=== PATIENT | female | born 1980 | race Two or more races ===

== ENCOUNTER 2023-11-11 09:36 | Outpatient (AMB) | payer OTHER, SELFPAY ==
--- NOTE | 2023-11-11 09:43 | MHC.OFFVIS ---
Intake Vital Signs 11/11/23 09:44 Height 5 ft 2 in Weight 212 lb 4 oz BMI 38.8 BP 150/98 H Blood Pressure Location Rt brachial Position Sitting Pulse 82 Pulse Source Pulse Oximeter Pulse Oximetry (%) 97 Oxygen Delivery Method Room Air Intake Visit Reasons: Hypertension Agronomy Technician Required: No Accompanied by: Self / Same As Patient Allergies latex Allergy (Verified 11/11/23 09:48) Unknown lisinopril Allergy (Verified 11/11/23 09:48) Unknown shrimp Allergy (Verified 11/11/23 09:48) Unknown HPI HPI Comments History of Present Illness Details I had the privilege of seeing Sid in follow-up of her hypertension. She has gained some weight and her blood pressure control has been sub optimal. She has some symptoms suggestive of obstructive sleep apnea. She has been having edema. She claims to be compliant with the losartan and nifedipine. She denies chest pain, shortness of breath, paroxysmal nocturnal dyspnea, orthopnea, urinary symptoms, visual disturbances, headache. She denies using excess nonsteroidal anti-inflammatories. She is not compliant with low-sodium diet. [facility] Medical History (Updated 11/11/23 @ 10:16 by Kenny Moore MD) Hypertension Surgical History (Updated 11/11/23 @ 09:49 by Meghan Smiley MA) History of carpal tunnel release History of wisdom tooth extraction H/O section History of appendectomy History of cholecystectomy Family History (Updated 11/11/23 @ 09:50 by Meghan Smiley MA) Mother Kidney disease Hypertension Brother Hypertension Social History (Updated 11/11/23 @ 09:49 by Meghan Smiley MA) Alcohol intake: never Patient Tobacco Use Status: Never used Tobacco Physical Exam Vital Signs: Last Vital Signs Pulse 82 11/11/23 09:44 BP 150/98 H 11/11/23 09:44 Pulse Ox 97 11/11/23 09:44 Oxygen Delivery Method Room Air 11/11/23 09:44 BMI result Body Mass Index 38.8 Const General: comfortable and no acute distress Orientation/consciousness: patient oriented x3 HEENT Head: Yes normocephalic Mouth: Normal oral and palatal mucosa present Eyes EOM: EOMs intact bilaterally Neck Neck: Yes supple Resp Auscultation: clear to auscultation bilaterally Cardio Jugular venous distension: no JVD Rate: regular rate Heart sounds: Murmur heart sound present GI Palpation (GI): Soft to palpation Auscultation: normal bowel sounds General: Yes no CVA tenderness Back/Spine/Pelvis Back: no CVA tenderness Skin General skin exam: no rashes or lesions noted Neuro General: patient oriented x3 and moves all extremities Extrem General: Yes edema Assessment & Plan Assessment & Plan (1) Hypertension: Code(s): I10 - Essential (primary) hypertension Qualifiers: Hypertension type: primary hypertension Qualified Code(s): I10 - Essential (primary) hypertension Plan She has had proteinuria in the past. She has not had any quantification of urine protein recently. Her blood pressure control remains suboptimal. She has edema. She is on losartan 100 mg and nifedipine 90 mg daily. I started her on chlorthalidone 25 mg daily. All side effects have been explained. She needs a sleep study. She needs to lose weight and keep up with a low-sodium diet. She is going to follow-up with me with repeat lab work for continued care. All questions answered . Follow-up given Medications: New chlorthalidone 25 mg PO DAILY 30 days 30 tabs 3RF Coding Level of Care Code Est Pt Level 4 (09984) Diagnoses Primary hypertension I10 Hypertension type: primary hypertension
[2023-11-11 09:44] VITALS: BP 150/98; PULSE 82; O2SAT 97; BMI 38.8
== END 2023-11-11 10:24 | disposition home or self-care (01) ==
PROVIDERS: PCP Internal Medicine; Visit Provider Internal Medicine Nephrology
DX: I10 Essential (primary) hypertension (principal)
CPT/HCPCS: 99214

== ENCOUNTER → 2023-11-11 09:36 | Outpatient (BNVA) | payer OTHER, SELFPAY | PROVIDERS: PCP Internal Medicine; Visit Provider Internal Medicine Nephrology ==

== ENCOUNTER 2024-12-26 10:33 | Outpatient (AMB) | payer BC, SELFPAY ==
--- NOTE | 2024-12-26 10:50 | HO.NEPHOV_ITS ---
Vital Signs 12/26/24 10:55 Weight 206 lb 4 oz BP 140/80 H Blood Pressure Location Lt brachial Position Sitting Pulse 81 Pulse Source Pulse Oximeter Pulse Oximetry (%) 98 Intake Visit Reasons: follow up Operations Supervisor Required: No Accompanied by: Self / Same As Patient Allergies latex Allergy (Verified 12/26/24 10:54) Unknown lisinopril Allergy (Verified 12/26/24 10:54) Unknown shrimp Allergy (Verified 12/26/24 10:54) Unknown HPI Comments Details: I had the privilege of seeing Sid in follow-up of her hypertension. She has gained some weight and her blood pressure control has been labile. She has some symptoms suggestive of obstructive sleep apnea. She has been having edema. She claims to be compliant with the losartan and nifedipine. She took Chlorthalidone for a brief period of time. She denies chest pain, shortness of breath, paroxysmal nocturnal dyspnea, orthopnea, urinary symptoms, visual disturbances, headache. She denies using excess nonsteroidal anti- inflammatories. She is not compliant with low-sodium diet. [facility] Medical History (Updated 11/11/23 @ 10:16 by Kenny Moore MD) Hypertension Surgical History History of carpal tunnel release History of wisdom tooth extraction H/O section History of appendectomy History of cholecystectomy Family History Mother Kidney disease Hypertension Brother Hypertension Social History Alcohol intake: never Patient Tobacco Use Status: Never used Tobacco Review of Systems Const All systems reviewed & are unremarkable except as noted in HPI and below Physical Exam Vital Signs: Last Vital Signs Pulse 81 12/26/24 10:55 BP 140/80 H 12/26/24 10:55 Pulse Ox 98 12/26/24 10:55 Const General: comfortable and no acute distress Orientation/consciousness: patient oriented x3 HEENT Head: Yes normocephalic Mouth: Normal oral and palatal mucosa present Eyes EOM: EOMs intact bilaterally Neck Neck: Yes supple Resp Auscultation: clear to auscultation bilaterally Cardio Jugular venous distension: no JVD Rate: regular rate GI Palpation (GI): Soft to palpation Auscultation: normal bowel sounds Skin General skin exam: no rashes or lesions noted Neuro General: patient oriented x3 and moves all extremities Extrem General: Yes no pedal edema Results Reviewed Nephrology Results: No Data to Display Assessment & Plan Assessment & Plan (1) Hypertension: Code(s): I10 - Essential (primary) hypertension Category: Medical Qualifiers: Hypertension type: primary hypertension Qualified Code(s): I10 - Essential (primary) hypertension Plan She has had proteinuria in the past. She has not had any quantification of urine protein recently. Her blood pressure control remains labile. She forgets to take maedications at times. She has no edema. She is on losartan 100 mg and nifedipine 90 mg daily. She likely will need a sleep study. She needs to lose weight and keep up with a low-sodium diet. She is going to follow-up with me with repeat lab work for continued care. All questions answered . Follow-up tomas delaney Orders: Orders Creatinine Today I10 - Essential (primary) hypertension Blood Urea Nitrogen Today I10 - Essential (primary) hypertension Electrolytes Today I10 - Essential (primary) hypertension Protein Creatinine Ratio, Ur Today I10 - Essential (primary) hypertension Coding Level of Care Code Est Pt Level 4 (67085) Diagnoses Primary hypertension I10 Hypertension type: primary hypertension
[2024-12-26 10:55] VITALS: BP 140/80; PULSE 81; O2SAT 98
--- OUTSIDE RECORDS SUMMARY | 2024-12-26 12:38 | XMS_ITS | Clinical Summary ---
Author Organization [facility] Address [address] [place] [address] Phone Care Team Providers Care Manager Mechanical Name Role Phone Physician, No Pcp Primary Care Provider Unavaila ble Allergies Active Allergy Reactions Criticality Noted Date Comments Lisinopril Cough 10/19/2024 Medications albuterol HFA (PROAIR HFA ; PROVENTIL HFA ; VENTOLIN HFA) 90 mcg/actuation inhaler Inhale 2 puffs by mouth every 4 (four) hours if needed for wheezing. 1 each 10/19/2024 Active Encounters Date Type Department Care Team Description 10/19/2024 9:20 AM EST - 10/19/2024 10:48 AM EST Emergency [facility] Emergency [address] [place] [address] Arthur Min, Acute cough (Primary Dx); Acute bronchitis, unspecified organism Discharge Disposition: Home or Self Care from Last 3 Months Surgical History Surgery Date Site/Laterality Comments APPENDECTOMY PROCEDURE: AR APPENDECTOMY Social History Tobacco Use Types Packs/Day Years Used Date Smoking Tobacco: Never Smokeless Tobacco: Never Alcohol Use Standard Drinks/Week Comments No 0 (1 standard drink = 0.6 oz pur e alcohol) Comments Unknown Sex and Gender Information Value Date Recorded Sex Assigned at Not on file Legal Sex Female 3:32 PM EST Gender Identity Not on file Sexual Orientation Not on file Obstetrics History Last Filed Vital Signs Vital Sign Reading Time Taken Comments Blood Pressure 136/75 10/19/2024 10:24 AM EST Pulse 73 10/19/2024 10:24 AM EST Temperature 36.5 ??C (97.7 ??F) 10/19/2024 8:00 AM ES T Respiratory Rate 18 10/19/2024 8:00 AM EST Oxygen Saturation 100% 10/19/2024 10:24 AM EST Inhaled Oxygen Concentration - - Weight 97.5 kg (215 lb) 10/19/2024 8:00 AM EST Height 157.5 cm (5' 2 ) 10/19/2024 8:00 AM EST Body Mass Index 39.32 10/19/2024 8:00 AM EST Plan of Treatment Health Maintenance Due Date Last Done Comments Breast Cancer Screening 1978 Hepatitis B Vaccines (1 of 3 - 19+ 3-dose series) 1997 Pneumococcal Vaccine: Pediatrics (0 to 5 Years) and At-Risk Patients (6 to 64 Years) (1 of 2 - PCV) 1997 Cervical Cancer Screening: Pap Smear 1999 Cholesterol Screening (Lipid Panel) 09/16/2022 Colorectal Cancer Screening: Colonoscopy 09/16/2022 Depression Screening 09/16/2022 HIV Screening 09/16/2022 Hepatitis C Screening 09/16/2022 Social Influencers of Health Screening 09/16/2022 COVID-19 Vaccine ( season) 2024 06/10/2022, 10/07/2021, 04/10/2021, Additional history exists Influenza Vaccine (#1) 2024 , 07/30/2022, 09/25/2020, Additional history exists Hypertension/CHF/CAD Annual BMP Blood Test 10/19/2024 DTaP,Tdap,and Td Vaccines (3 - Td or Tdap) 12/18/2031 12/17/2021, 05/30/2010 HIB Vaccines Aged Out No longer eligi ble based on patient's age to complete this topic HPV Vaccines Aged Out No longer eligi ble based on patient's age to complete this topic Hepatitis A Vaccines Aged Out No long er eligible based on patient's age to complete this topic IPV Vaccines Aged Out No longer eligi ble based on patient's age to complete this topic MMR Vaccines Aged Out No longer eligi ble based on patient's age to complete this topic Meningococcal ACWY Vaccine Aged Out N o longer eligible based on patient's age to complete this topic Meningococcal B Vacine Aged Out No lo nger eligible based on patient's age to complete this topic RSV Immunization Patients Under 20 months Aged Out No longer eligible based on patient's age to complete this topic Varicella Vaccines Aged Out No longer eligible based on patient's age to complete this topic Procedures Procedure Name Priority Date/Time Associated Diagnosis Comments RESPIRATORY VIRUS PANEL MOLECULAR STUDY STAT 10/19/2024 8:03 AM EST from Last 3 Months Results * Respiratory virus panel molecular study (10/19/2024 8:03 AM EST) Adenovirus Detection by PCR Not Detected Not Detected LAB MICROBIOLOGY METHOD 10/19/2024 9:36 AM [facility] Influenza A PCR Not Detected Not Detected LAB MICROBIOLOGY METHOD 10/19/2024 9:36 AM [facility] Influenza B PCR Not Detected Not Detected LAB MICROBIOLOGY METHOD 10/19/2024 9:36 AM [facility] Coronavirus 229E Not Detected Not Detected LAB MICROBIOLOGY METHOD 10/19/2024 9:36 AM [facility] Coronavirus HKU1 Not Detected Not Detected LAB MICROBIOLOGY METHOD 10/19/2024 9:36 AM [facility] Coronavirus OC43 Not Detected Not Detected LAB MICROBIOLOGY METHOD 10/19/2024 9:36 AM [facility] Coronavirus NL63 Not Detected Not Detected LAB MICROBIOLOGY METHOD 10/19/2024 9:36 AM [facility] Parainfluenza Virus 1 Not Detected Not Detected LAB MICROBIOLOGY METHOD 10/19/2024 9:36 AM [facility] Parainfluenza Virus 2 Not Detected Not Detected LAB MICROBIOLOGY METHOD 10/19/2024 9:36 AM [facility] Parainfluenza Virus 3 Not Detected Not Detected LAB MICROBIOLOGY METHOD 10/19/2024 9:36 AM [facility] Parainfluenza Virus 4 Not Detected Not Detected LAB MICROBIOLOGY METHOD 10/19/2024 9:36 AM EST [facility] RSV PCR Not Detected Not Detected LAB MICROBIOLOGY METHOD 10/19/2024 9:36 AM EST [facility] Human Metapneumovirus A and B Not Detected Not Detected LAB MICROBIOLOGY METHOD 10/19/2024 9:36 AM EST [facility] Rhinovirus/Entero virus Not Detected Not Detected LAB MICROBIOLOGY METHOD 10/19/2024 9:36 AM EST [facility] Bordetella pertussis Not Detected Not Detected LAB MICROBIOLOGY METHOD 10/19/2024 9:36 AM [facility] Bordetella parapertussis Not Detected Not Detected LAB MICROBIOLOGY METHOD 10/19/2024 9:36 AM [facility] Mycoplasma pneumo by PCR Not Detected Not Detected LAB MICROBIOLOGY METHOD 10/19/2024 9:36 AM [facility] Chlamydia pneumoniae Not Detected Not Detected LAB MICROBIOLOGY METHOD 10/19/2024 9:36 AM [facility] SARS COV-2 Not Detected Not Detected LAB MICROBIOLOGY METHOD 10/19/2024 9:36 AM [facility] Swab Both anterior nares / Unknown Non-blood Collection / Unknown 10/19/2024 8:03 AM EST 10/19/2024 8:23 AM EST [facility] - 10/19/2024 9:36 AM EST Testing was performed using the [employer] Respiratory Pathogen PCR Assay. All results must be correlated with the clinical findings. Results should not be used as the sole basis for diagnosis. False Negative results may occur from the presence of sequence variants in the region targeted by the assay or the presence of inhibitors. Results may be affected by concurrent antiviral/antimicrobial therapy or levels of organisms that are below the limit of detection. Arthur Min DO LAB MICROBIOLOGY - GENERAL ORD ERABLES Final Result [facility] [address] [place] [address], from Last 3 Months Insurance MEDICAID - [place] [facility] Care Teams Manager Mechanical Relationship Specialty Start Date End Date Physician, No Pcp PCP - General 10/19/24
--- OUTSIDE RECORDS SUMMARY | 2024-12-26 12:38 | XMS_ITS | Data Portability ---
Author Organization [facility], [facility] Address [address] [place] [address] Care Team Providers Care Sprue Knocker Name Role Phone RISSA FRANCES Primary Care Provider Assessment Encounter Date Assessment Date Assessment LastModified by Organization Details LastModified Time 04/17/2024 04/17/2024 I am seeing the patient today under the supervision of Dr. Casas who was available but who did not see the patient. HPI: Patient comes in for recheck of right knee pain. Has known osteoarthritis patellofemoral joint. Has undergone cortisone injections in the past with good relief. Complains of same pain today over the anterior aspect of the knee. Difficulty with the flexion activities. No new injury. No other modalities. Physical exam: The patient is well appearing and in no apparent distress. Alert and oriented x3. Gait is symmetric. Vital signs per intake sheet. Examination of right knee reveals no joint effusion erythema or warmth. No joint line tenderness. Tenderness over the lateral border of the patella. Supple range of motion to 120? ? ?. No ligamentous instability. Calf soft and nontender. Assessment: Osteoarthritis patellofemoral joint Plan: Nature diagnosis discussed with the patient today. At this time recommend a repeat cortisone injection. Patient agrees. See Procedure note. Postinjection precautions reviewed. Follow-up as symptoms dictate. [email or web address] Not available 04/17/2024 07:37:02 07/03/2024 07/03/2024 I am seeing the patient today under the supervision of Dr. Casas who was available but who did not see the patient. HPI: Patient comes in for recheck of right knee pain. Has known osteoarthritis patellofemoral joint. Has undergone cortisone injections in the past with good relief. Complains of same pain today over the anterior aspect of the knee. Difficulty with the flexion activities. No new injury. No other modalities. Physical exam: The patient is well appearing and in no apparent distress. Alert and oriented x3. Gait is symmetric. Vital signs per intake sheet. Examination of right knee reveals no joint effusion erythema or warmth. No joint line tenderness. Tenderness over the lateral border of the patella. Supple range of motion to 120? ? ?. No ligamentous instability. Calf soft and nontender. Assessment: Osteoarthritis patellofemoral joint Plan: I explained the nature of the diagnosis with the patient and its treatment options both conservative and surgical. At this time recommend a repeat cortisone injection. Patient agrees. See Procedure note. Postinjection precautions reviewed. Follow-up in 3 months. The patient understands and agrees with the plan. They know to call if they have any further questions or concerns regarding their symptoms, or to follow up sooner if needed. [email or web address] Not available 07/03/2024 09:43:52 10/05/2024 10/05/2024 I am seeing the patient today under the supervision of who was available but who did not see the patient. HPI: Patient comes in for recheck of right knee pain. Has known osteoarthritis patellofemoral joint. Has undergone cortisone injections in the past with good relief for 2 months or so. Complains of same pain today over the anterior aspect of the knee. Difficulty with the flexion activities. No new injury. No other modalities. Physical exam: The patient is well appearing and in no apparent distress. Alert and oriented x3. Gait is symmetric. Vital signs per intake sheet. Examination of right knee reveals no joint effusion erythema or warmth. No joint line tenderness. Tenderness over the lateral border of the patella. Supple range of motion to 120? ? ?. No ligamentous instability. Calf soft and nontender. Assessment: Osteoarthritis patellofemoral joint Plan: I explained the nature of the diagnosis with the patient and its treatment options both conservative and surgical. At this time recommend a repeat cortisone injection. Patient agrees. See Procedure note. Postinjection precautions reviewed. Patient has received decreasing benefit from conservative management with cortisone, therefore would like to order Visco supplementation. Will obtain insurance approval and see the patient back once this has been obtained. Will follow up as scheduled for further evaluation. The patient understands and agrees with the plan. They know to call if they have any further questions or concerns regarding their symptoms, or to follow up sooner if needed. [email or web address] Not available 10/05/2024 10:33:50 Plan of Treatment Reminders Order Date Submit Date Provider Last Modified By Organization Details Last Modified Time Details Appointments None record ed. Lab None record ed. Referral None record ed. Procedures None record ed. Surgeries None record ed. Imaging XR, knee, 4 or more view 024 01/25/20 24 [email or web address] Not available 4 10:55:48 Medication Orders None record ed. Patient TargetsNo targets recorded. Patient InstructionsNo instructions recorded. Reason for Referral None Reported. Problems Name Problem SNOMED Code Status Onset Date Resolution Date Notes Provider Name and Address Organization Details Recorded Time Aortic murmur 685259964 Active 2023 MARCIANO SPICER [facility], [facility] 4 10:01:17 Headache 21721147 Active 2023 [facility], [facility] 4 10:01:28 Arthritis 0737649 Active 2023 [facility], [facility] 4 10:01:34 Hypertensive disorder 41089474 Active 2023 [facility] 4 10:02:36 Problem Notes None recorded. Procedures Surgical History Date Name Laterality Status Provider Name and Address Organization Details Recorded Time 10/05/2024 JZKNEE INJ completed Fredis Izquierdo PA-C [address] [facility], [place], [address], [facility] 10/05/2024 07:45:08 07/03/2024 JZKNEE INJ completed Fredis Izquierdo PA-C [address], [place], [address], [facility] 07/03/2024 07:36:48 04/17/2024 Sports Knee 4&1 completed Fredis Izquierdo PA-C [address], [place], [address], [facility] 04/17/2024 07:37:11 01/25/2024 Sports Knee 4&1 completed Fredis Izquierdo PA-C [address] [facility], [place], [address], [facility] 01/25/2024 17:28:46 Imaging Results None recorded. Procedure Notes None recorded. Medical Equipment None Reported. Allergies Allergen ID Allergen Name Allergen Category Reaction Reaction Severity Criticality Documentation Date Start Date Code Code System Note Provider Name and Address Organization Details Recorded Time 202959 latex environme nt,medica tion Not available Not available Not available 01/25/2024 07198 91 RxNorm Fredis Izquierdo PA-C [address], [place], [address], [facility] 4 17:04:50 911932 lisinopri l medicatio n Not available Not available Not available 01/25/2024 55721 RxNorm Fredis Izquierdo PA-C [email or web address], [place], [address], [facility] 4 17:04:55 000941 shrimp allergeni c extract food Not available Not available Not available 01/25/2024 45262 2 RxNorm Fredis Izquierdo PA-C [address], [place], [address], [facility] 4 17:05:00 Medications Name Sig Start Date Stop Date Status Note LastModified by Organization Details LastModified Time azithromyci n 250 mg tablet TAKE 2 TABLETS BY MOUTH FOR 1 DAY THEN TAKE 1 TABLET BY MOUTH DAILY DIRECTED 02/02 completed Not Available Not Available Not Available valacyclovi r 1 gram tablet TAKE 1 TABLET BY MOUTH TWICE DAILY FOR 7 DAYS active Not Available Not Available No t Available albuterol sulfate 1.25 mg/3 mL solution for nebulizatio n USE 3 ML VIA NEBULIZER EVERY 4 HOURS FOR 5 DAYS FOR SHORTNESS OF BREATH OR WHEEZING active Not Available Not Available No t Available prednisone 20 mg tablet 01/24 completed Not Available Not Available Not Available chlorthalid one 25 mg tablet TAKE 1 TABLET BY MOUTH DAILY active Not Available Not Available No t Available lorazepam 0.5 mg tablet TAKE 1/2 TO 1 TABLET BY MOUTH TWICE DAILY NEEDED FOR ANXIETY 01/24 completed Not Available Not Available Not Available nifedipine ER 90 mg tablet,exte nded release 24 hr TAKE 1 TABLET BY MOUTH DAILY active Not Available Not Available No t Available albuterol sulfate HFA 90 mcg/actuati on aerosol inhaler INHALE 2 PUFFS BY MOUTH EVERY 4 TO 6 HOURS FOR 1 WEEK FOR SHORTNESS OF BREATH OR WHEEZING active Not Available Not Available No t Available losartan 100 mg tablet TAKE 1 TABLET BY MOUTH DAILY active Not Available Not Available No t Available diclofenac 1 % topical gel APPLY TOPICALLY TO THE AFFECTED AREA 2 GRAM FOUR TIMES DAILY 02/02 completed Not Available Not Available Not Available ProChamber USE DIRECTED WITH INHALER. active Not Available Not Available No t Available potassium chloride ER 20 mEq tablet,exte nded release TAKE 1 TABLET BY MOUTH TWICE DAILY 01/24 completed Not Available Not Available Not Available Paxlovid 300 mg (150 mg x 2)-100 mg tablets in a dose pack TK 2 NIRMATREL VIR TS AND 1 RITONAVIR T TOGETHER PO BID FOR 5 DAYS 01/24 completed Not Available Not Available Not Available Vitals Date Recorded Body height Body mass index (BMI) Body weight Provider Name and Address Organization Details Last Updated DateTime 01/25/2024 157.48 cm 38.8 kg/m2 23740.58 g Fredis Izquierdo PA-C [address] [facility] [address], [place], [address], [facility] 01/25/2024 17:04:41 Date Recorded Body height Body mass index (BMI) Body weight Provider Name and Address Organization Details Last Updated DateTime 04/17/2024 157.48 cm 38.8 kg/m2 44811.58 g MARCIANO SPICER [facility] 04/17/2024 08:59:14 Date Recorded Body height Body mass index (BMI) Body weight Provider Name and Address Organization Details Last Updated DateTime 07/03/2024 157.48 cm 38.8 kg/m2 37231.58 g Sofy Young [facility] 07/03/2024 09:34:41 Date Recorded Body height Body mass index (BMI) Body weight Provider Name and Address Organization Details Last Updated DateTime 10/05/2024 157.48 cm 38.8 kg/m2 46865.58 g SAVANNA LewisCHADJODY [facility] 10/05/2024 10:20:37 Social History Question Answer Notes LastModified by Organizat ion Details LastModified Time Tobacco Smoking Status Never Smoker SAVANNA LewisCHADJODY ugalde [facility] 10/05/2024 10:21:43 What Is Your Level Of Alcohol Consumption? None Information not available 10/05/2024 What Is Your Relationship Status? Single Information not available 10/05/2024 Do You Use Any Illicit Or Recreational Drugs? No Information not available 10/05/2024 Do You Or Have You Ever Used Any Other Forms Of Tobacco Or Nicotine? No Information not available 10/05/2024 Sex: Unknown Functional Status None recorded. Mental Status None recorded. Family History Nothing Reported. Medical History Condition Response Allergies/Hayfever N Coronary Artery Disease N Anxiety/Depression N Breathing or lung disorders N Emphysema N Nerve Disorders N Thyroid Problems N COPD N Pacemaker N Anemia N Kidney/Bladder Problems N Vascular Disease N Heart Trouble N Heart Attack (NC) N Gastrointestinal Disease N Cholesterol N Diabetes N Autoimmune disease N Bleeding Disorder N Inflammatory Joint disease N Orthotics N Arthritis Y Seizures/Epilepsy N Blood Clot N AIDS/HIV N Congestive Heart Failure (CHF) N Acid Reflux (GERD) N Cancer N Stroke N Asthma N Circulation Problems N Peripheral Vascular Disease N Sleep Apnea N Hepatitis N Heart Disease N Rheumatoid Arthritis N Arrhythmia N Pulmonary Embolism N Headaches Y Fibromyalgia N Hypertension Y Osteoporosis N Gynecological HistoryNo gynecological history recorded. Obstetrics History GPAL:G 0 P 0 0 0 0 Past Encounters Encounter ID Performer Location Encounter Start Date Encounter Closed Date Diagnosis/Indication Diagnosis SNOMED-CT Code Diagnosis ICD10 Code Diagnosis Note [id number] ABDIFATAH [facility] [address] [place] [address] 01/25/2024 16:55:13 02/15/2024 10:55:47 Pain of right knee joint 4117686094 57298 M25.561 Osteoarthr itis of right knee joint 5903210906 45727 M17.11 [id number] ABDIFATAH [facility] [address] [place] [address] 04/17/2024 08:51:39 04/17/2024 09:06:22 Osteoarthritis of right knee joint 8527267736 96437 M17.11 [id number] Fredis Izquierdo PA-C [facility] [address] [place] [place] [address] 07/03/2024 09:14:35 07/03/2024 09:45:35 Osteoarthritis of right knee joint 7758987847 31317 M17.11 [id number] ABDIFATAH [facility] [address] [place] [address] 10/05/2024 09:59:18 10/30/2024 07:45:23 Osteoarthritis of right knee joint 2984680668 33052 M17.11 Health Concerns Section Related Observation LastModified by Organization Detai ls LastModified Time None Recorded Concern Status LastModified by Organization Details LastModified Time None Recorded Advance Directives Directive None Recorded Payers Encounter Date Sequence Insurance Name Policy Number Policy Gordon Covered Member ID Gordon Member ID Guarantor Name 01/25/2024 1 [facility] (MEDICAID HMO) [id number] Zeke Fiore [id number] Zeke Fiore 04/17/2024 1 BCBS-[place]: [facility] (PPO) [id number] Zeke [id number] Zeke Fiore 07/03/2024 1 [place] [id number] Zeke [id number] Zeke Fiore 10/05/2024 1 [place] [id number] Zeke [id number] Zeke Fiore Notes Date Note Type Note Provider Name and Address Organization Details Recorded Time 01/25/2024 text/html I am seeing the patient today under the supervision of Dr. Casas who was available but did not see the patient. HPI: Patient comes in for recheck of {{right* left bilate ral}} knee pain. Has known osteoarthritis patellofemoral joint. Was last seen in our office in 2014 for this difficulty. He has been seen by her primary care provider and treated conservatively with physical therapy exercises and oral anti-inflammatories. Complains of same pain today over the anterior aspect of the knee. Difficulty with the flexion activities. No new injury. No other modalities. Physical exam: The patient is well appearing and in no apparent distress. Alert and oriented x3. Gait is symmetric. Vital signs per intake sheet. Examination of {{right* left bilate ral}} knee reveals {{no* mild moderate significant}} joint effusion erythema or warmth. No joint line tenderness. Tenderness over the lateral border of the patella. Supple range of motion to 120? ? ?. No ligamentous instability. Calf soft and nontender. Assessment: Osteoarthritis patellofemoral joint, right knee Plan: Nature diagnosis discussed with the patient today. At this time recommend a repeat cortisone injection. Patient agrees. After explaining risks and benefits, under meticulous aseptic technique, the right knee was injected with, 1cc of Kenalog 40mgs and 4 cc of Marcaine 0.25%. Patient tolerated the procedure well. Post injection precautions reviewed. They will continue with conservative modalities including activity modification, icing and elevating. They will follow up as discussed for further discussion of conservative management versus surgical management. Postinjection precautions reviewed. Follow-up in 3 months for repeat evaluation and potential repeat cortisone injection at that time. Fredis Izquierdo PA-C [address] [facility] [address], [place], [address], [facility] [place] [facility] 01/25/2024 18:05:52 OBGyn Episode No OBEpisode recorded.
--- OUTSIDE RECORDS SUMMARY | 2024-12-26 12:38 | XMS_ITS | Clinical Summary ---
Author Organization [facility] Address [address] [facility] [address] [place] [address] Phone Care Team Providers Care Assistant Golf Coach Name Role Phone Mariaa Sanchez MD Primary Care Provider [phone] Allergies Active Allergy Reactions Criticality Noted Date Comments Latex Other (see comments) 01/28/2021 Lisinopril Other (see comments) 01/28/2021 Shrimp (Diagnostic) 01/15/2022 Other reaction(s): tongue swelling Medications ProAir HFA 108 (90 Base) MCG/ACT inhaler Inhale 2 puffs every 6 (six) hours if needed 12/17/2021 Active Symbicort 80-4.5 MCG/ACT inhaler Inhale 2 puffs 2 (two) times a day 12/17/2021 Active hydroCHLOROthia zide 25 MG tablet Take 1 tablet by mouth 1 (one) time each day 12/31/2021 Active LORazepam (ATIVAN) 0.5 MG tablet TAKE 1/2 TABLET BY MOUTH TWICE DAILY NEEDED FOR ANXIETY 12/30/2021 Active NIFEdipine XL (Procardia XL) 90 MG 24 hr tabletIndicatio ns:Hypertension Take 1 tablet (90 mg total) by mouth 1 (one) time each day Do not crush, chew, or split. 90 tablet 3 01/20/2023 Active losartan (COZAAR) 100 MG tabletIndicatio ns:Hypertension Take 1 tablet (100 mg total) by mouth 1 (one) time each day 90 tablet 3 01/20/2023 Active Active Problems Problem Noted Date Diagnosed Date Acanthosis nigricans 01/15/2022 Hypertension 01/15/2022 Hypertensive disorder 01/04/2022 Anemia of chronic disease 01/28/2021 Benign essential hypertension 01/28/2021 Hypokalemia 01/28/2021 Proteinuria 01/28/2021 Chronic cholecystitis 01/18/2014 Resolved Problems Problem Noted Date Diagnosed Date Resolved Date Acute otitis media of right ear 05/15/2022 10/29/2022 Adjustment disorder with mix ed emotional features 01/15/2022 10/29/2022 Binge eating disorder 01/15/20222022 Carpal tunnel syndrome 01/15/202210/29 Hyperlipidemia 01/15/2022 10/29/2022 Pre-eclampsia 01/15/2022 10/29/2022 Chest discomfort 01/04/2022 10/29/2022 Obese class II 01/04/2022 10/29/2022 Stress 01/04/2022 10/29/2022 Immunizations Name Administration Dates Next Due Influenza Split High Dose Preservative Free IM 07/22/2015 Moderna SARS-COV-2 06/10/2022,,04/10/2021,2020 Tdap 12/17/2021,05/30/2010 Family History Medical History Relation Comments Heart disease Father Hypertension Father Stroke Father Cancer Mother Diabetes Mother Heart disease Mother Hypertension Mother Kidney disease Mother Hypertension Sibling Relation Status Comments Father Alive Mother Alive Sibling Social History Tobacco Use Types Packs/Day Years Used Date Smoking Tobacco: Never Smokeless Tobacco: Never Tobacco Cessation:Counseling Given: Not Answered Alcohol Use Standard Drinks/Week Comments No 0 (1 standard drink = 0.6 oz pur e alcohol) Comments Unknown Sex and Gender Information Value Date Recorded Sex Assigned at Not on file Legal Sex Female 5:14 PM EST Gender Identity Not on file Sexual Orientation Not on file Last Filed Vital Signs Vital Sign Reading Time Taken Comments Blood Pressure 130/90 10/29/2022 2:46 PM EST Pulse 73 10/29/2022 2:46 PM EST Temperature - - Respiratory Rate - - Oxygen Saturation - - Inhaled Oxygen Concentration - - Weight 97 kg (213 lb 12.8 oz) 10/29/2022 2:46 PM EST Height 160 cm (5' 3 ) 03/01/2020 12:00 PM EDT Body Mass Index 37.87 03/01/2020 12:00 PM EDT Plan of Treatment Health Maintenance Due Date Last Done Comments Pneumococcal Vaccine: Pediat rics (0 to 5 Years) and At-Risk Patients (6 to 64 Years) (1 of 2 - PCV) 1984 Hepatitis B Vaccine (1 of 3 - 19+ 3-dose series) 05/05 Influenza Vaccine (#1) 2024 07/22/2015 [place] Care Teams Assistant Golf Coach Relationship Specialty Start Date End Date Mariaa Sanchez MD [address] [place], [place] PCP - General 10/28/20
== END 2024-12-26 11:04 | disposition home or self-care (01) ==
PROVIDERS: PCP Internal Medicine; Visit Provider Internal Medicine Nephrology
DX: I10 Essential (primary) hypertension (principal)
CPT/HCPCS: 99214

== ENCOUNTER 2024-12-26 10:33 | Outpatient (REF) | payer BC, SELFPAY ==
--- OUTSIDE RECORDS SUMMARY | 2024-12-26 13:43 | XMS_ITS | Clinical Summary ---
Author Organization [facility] Address [address] [place] [address] Phone Care Team Providers Care Shearing Machine Tender Name Role Phone Physician, No Pcp Primary [...] EST - 10/19/2024 10:48 AM EST Emergency [facility] Emergency [address] [place] [address] Arthur Min, Acute cough (Primary Dx); Acute bronchitis, unspecified organism Discharge Disposition: Home or Self Care from Last 3 Months Surgical History Surgery Date Site/Laterality Comments APPENDECTOMY PROCEDURE: [place] APPENDECTOMY Social History Tobacco Use Types Packs/Day [...] Detected LAB MICROBIOLOGY METHOD 10/19/2024 9:36 AM [facility] Influenza A PCR Not Detected Not Detected LAB MICROBIOLOGY METHOD 10/19/2024 9:36 AM [facility] Influenza B PCR Not Detected Not Detected LAB MICROBIOLOGY METHOD 10/19/2024 9:36 AM [facility] Coronavirus 229E Not Detected Not Detected LAB MICROBIOLOGY METHOD 10/19/2024 9:36 AM [facility] Coronavirus HKU1 Not Detected Not Detected LAB MICROBIOLOGY METHOD 10/19/2024 9:36 AM [facility] Coronavirus OC43 Not Detected Not Detected LAB MICROBIOLOGY METHOD 10/19/2024 9:36 AM [facility] Coronavirus NL63 Not Detected Not Detected LAB MICROBIOLOGY METHOD 10/19/2024 9:36 AM [facility] Parainfluenza Virus 1 Not Detected Not Detected LAB MICROBIOLOGY METHOD 10/19/2024 9:36 AM [facility] Parainfluenza Virus 2 Not Detected Not Detected LAB MICROBIOLOGY METHOD 10/19/2024 9:36 AM [facility] Parainfluenza Virus 3 Not Detected Not Detected LAB MICROBIOLOGY METHOD 10/19/2024 9:36 AM [facility] Parainfluenza Virus 4 Not Detected Not Detected LAB MICROBIOLOGY METHOD 10/19/2024 9:36 AM EST [facility] RSV PCR Not Detected Not Detected LAB MICROBIOLOGY METHOD 10/19/2024 9:36 AM EST [facility] Human Metapneumovirus A and B Not Detected Not Detected LAB MICROBIOLOGY METHOD 10/19/2024 9:36 AM EST [facility] Rhinovirus/Entero virus Not Detected Not Detected LAB MICROBIOLOGY METHOD 10/19/2024 9:36 AM EST [facility] Bordetella pertussis Not Detected Not Detected LAB MICROBIOLOGY METHOD 10/19/2024 9:36 AM [facility] Bordetella parapertussis Not Detected Not Detected LAB MICROBIOLOGY METHOD 10/19/2024 9:36 AM [facility] Mycoplasma pneumo by PCR Not Detected Not Detected LAB MICROBIOLOGY METHOD 10/19/2024 9:36 AM [facility] Chlamydia pneumoniae Not Detected Not Detected LAB MICROBIOLOGY METHOD 10/19/2024 9:36 AM [facility] SARS COV-2 Not Detected Not Detected LAB MICROBIOLOGY METHOD 10/19/2024 9:36 AM [facility] Swab Both anterior nares / Unknown Non-blood Collection / Unknown 10/19/2024 8:03 AM EST 10/19/2024 8:23 AM EST [facility] - 10/19/2024 9:36 AM EST Testing was performed using the fypio Respiratory Pathogen PCR Assay. All results must [...] MICROBIOLOGY - GENERAL ORD ERABLES Final Result [facility] [address] [place] [address], from Last 3 Months Insurance MEDICAID - [place] [facility] Care Teams Shearing Machine Tender Relationship Specialty Start Date End Date Physician, No Pcp PCP - General 10/19/24
--- OUTSIDE RECORDS SUMMARY | 2024-12-26 13:43 | XMS_ITS | Data Portability ---
Author Organization [facility], [facility] Address [address] [place] [address] Care Team Providers Care Comb Winder Name Role Phone RISSA FRANCES Primary Care [...] Postinjection precautions reviewed. Follow-up as symptoms dictate. [email or web address] Not available 04/17/2024 07:37:02 07/03/2024 07/03/2024 I [...] or to follow up sooner if needed. Not available 07/03/2024 09:43:52 10/05/2024 10/05/2024 I [...] or to follow up sooner if needed. [email or web address] Not available 10/05/2024 10:33:50 Plan of Treatment [...] Address Organization Details Recorded Time Aortic murmur 105928742 Active 2023 MARCIANO [facility], [facility] 4 10:01:17 Headache 69646932 Active 2023 [facility], [facility] 4 10:01:28 Arthritis 2411585 Active 2023 [facility], [facility] 4 10:01:34 Hypertensive disorder 72042585 Active 2023 [facility] 4 10:02:36 Problem Notes None recorded. Procedures Surgical History Date Name Laterality Status Provider Name and Address Organization Details Recorded Time 10/05/2024 JZKNEE INJ completed Fredis Izquierdo PA-C [address] [facility][note 3], [place], [address], [facility] 10/05/2024 07:45:08 07/03/2024 JZKNEE INJ completed Fredis Izquierdo PA-C [address], [place], [address], [facility] 07/03/2024 07:36:48 04/17/2024 Sports Knee 4&1 completed Fredis Izquierdo PA-C [address], [place], [address], [facility] 04/17/2024 07:37:11 01/25/2024 Sports Knee 4&1 completed Fredis Izquierdo PA-C [address] [facility][note 3], [place], [address], [facility] 01/25/2024 17:28:46 Imaging Results None recorded. Procedure Notes None recorded. Medical Equipment None Reported. Allergies Allergen ID Allergen Name Allergen Category Reaction Reaction Severity Criticality Documentation Date Start Date Code Code System Note Provider Name and Address Organization Details Recorded Time 101407 latex environme nt,medica tion Not available Not available Not available 01/25/2024 90234 91 RxNorm Fredis Izquierdo PA-C [address], [place], [address], [facility] 4 17:04:50 [id number] lisinopri l medicatio n Not available Not available Not available 01/25/2024 44719 RxNorm Fredis Izquierdo PA-C [address], [place], [address], [facility] 4 17:04:55 285694 shrimp allergeni c extract food Not available Not available Not available 01/25/2024 04816 2 RxNorm Fredis Izquierdo PA-C [address], [place], [address], [facility] 4 17:05:00 Medications Name Sig Start [...] Updated DateTime 01/25/2024 157.48 cm 38.8 kg/m2 19821.58 g Fredis Izquierdo PA-C [address] [facility] [address], [place], [address], [facility] 01/25/2024 17:04:41 Date Recorded Body height Body mass index (BMI) Body weight Provider Name and Address Organization Details Last Updated DateTime 04/17/2024 157.48 cm 38.8 kg/m2 73461.58 g MARCIANO SPICER [facility] 04/17/2024 08:59:14 Date Recorded Body height Body mass index (BMI) Body weight Provider Name and Address Organization Details Last Updated DateTime 07/03/2024 157.48 cm 38.8 kg/m2 22013.58 g Sofy Young [facility] 07/03/2024 09:34:41 Date Recorded Body height Body mass index (BMI) Body weight Provider Name and Address Organization Details Last Updated DateTime 10/05/2024 157.48 cm 38.8 kg/m2 77625.58 g SAVANNA LewisJEANAlvino [facility] 10/05/2024 10:20:37 Social History Question Answer Notes LastModified by Organizat ion Details LastModified Time Tobacco Smoking Status Never Smoker SAVANNA LewisCHADJODY ugalde [facility] 10/05/2024 10:21:43 What Is Your Level Of [...] Response Allergies/Hayfever N Coronary Artery Disease N Breathing or lung disorders N Anxiety/Depression N Emphysema N Nerve Disorders N Thyroid Problems N COPD N Pacemaker N Kidney/Bladder Problems N Anemia N Vascular Disease N Heart Trouble N Gastrointestinal Disease N Heart Attack ([place]) N Cholesterol N Diabetes N Autoimmune disease [...] SNOMED-CT Code Diagnosis ICD10 Code Diagnosis Note [id number] ABDIFATAH Sawyer [address] [place] [address] 01/25/2024 16:55:13 02/15/2024 10:55:47 Pain of right knee joint 9165846040 14869 M25.561 Osteoarthr itis of right knee joint 2902816326 63584 M17.11 [id number] ABDIFATAH Sawyer [address] [place] [address] 04/17/2024 08:51:39 04/17/2024 09:06:22 Osteoarthritis of right knee joint 5272082813 35067 M17.11 [id number] Fredis Izquierdo PA-C [place] [address] [place] [address] 07/03/2024 09:14:35 07/03/2024 09:45:35 Osteoarthritis of right knee joint 3064318256 05759 M17.11 [id number] ABDIFATAH Sawyer [address] [place] [address] 10/05/2024 09:59:18 10/30/2024 07:45:23 Osteoarthritis of right knee joint 1960232090 18319 M17.11 Health Concerns Section Related Observation LastModified by Organization Detai ls LastModified Time None Recorded Concern Status LastModified by Organization Details LastModified Time None Recorded Advance Directives Directive None Recorded Payers Encounter Date Sequence Insurance Name Policy Number Policy Gordon Covered Member ID Gordon Member ID Guarantor Name 01/25/2024 1 [employer] [facility] (MEDICAID HMO) [id number] Zeke Fiore [id number] Zeke Fiore 04/17/2024 1 [employer]-[place]: [facility] (PPO) [id number] Zeke [id number] Zeke Fiore 07/03/2024 1 [place] [id number] Zeke [id number] Zeke Fiore 10/05/2024 1 [place] [id number] Zeke [id number] Zeke Fiore Notes Date Note [...] at that time. Fredis Izquierdo PA-C [address] [facility] [address], [place], [address], [facility] 01/25/2024 18:05:52 OBGyn Episode No OBEpisode recorded.
--- OUTSIDE RECORDS SUMMARY | 2024-12-26 13:43 | XMS_ITS | Clinical Summary ---
Author Organization [facility] Address [address] [facility] [address] [place] [address] Phone Care Team Providers Care Cafeteria Helper Name Role Phone Mariaa Sanchez MD Primary Care Provider [phone] Allergies Active Allergy Reactions Criticality Noted Date [...] [place] Care Teams Cafeteria Helper Relationship Specialty Start Date End Date Mariaa Sanchez MD [address], [place] PCP - General 10/28/20
[2024-12-26 19:07] LABS: Anion Gap 11 (12-20); Blood Urea Nitrogen 11 mg/dL (9-16); Carbon Dioxide 26 mmol/L (22-29); Chloride 108 mmol/L (96-108); Estimated Glomerular Filt Rate > 60; Potassium 3.5 mmol/L (3.3-5.1); Sodium 141 mmol/L (135-145)
== END 2024-12-26 10:34 | disposition home or self-care (01) ==
LOC: HO.HKASLDS 10:33
PROVIDERS: PCP Internal Medicine; Visit Provider Internal Medicine Nephrology
DX: I10 Essential (primary) hypertension (principal)
CPT/HCPCS: 36415; 80051; 82565; 84520

== ENCOUNTER 2025-06-22 08:53 | Outpatient (REF) | payer BC, SELFPAY ==
--- OUTSIDE RECORDS SUMMARY | 2025-06-22 09:27 | XMS_ITS ---
Author Name [facility] Organization Unknown Care Team Organization Name Specialty Phone Email Start Date End Da gisela [facility] Izzy Zab[facility] 07/21/2023 024
--- OUTSIDE RECORDS SUMMARY | 2025-06-22 09:27 | XMS_ITS | Clinical Summary ---
Author Organization [facility] Address [address] [place] [address] Phone Care Team Providers Care Sand Mill Operator Name Role Phone Physician, No Pcp Primary Care Provider Unavaila ble Allergies Active Allergy Reactions Criticality Noted Date Comments Lisinopril Cough 10/19/2024 Medications albuterol HFA (PROAIR HFA ; PROVENTIL HFA ; VENTOLIN HFA) 90 mcg/actuation inhaler Inhale 2 puffs by mouth every 4 (four) hours if needed for wheezing. 1 each 10/19/2024 Active Surgical History Surgery Date Site/Laterality Comments APPENDECTOMY PROCEDURE: [place] APPENDECTOMY Social History Tobacco Use Types Packs/Day [...] 73 10/19/2024 10:24 AM EST Temperature 36.5 C (97.7 F) 10/19/2024 8:00 AM EST Respiratory Rate 18 10/19/2024 8:00 AM EST [...] of 3 - 19+ 3-dose series) 1997 Cervical Cancer Screening: Pap Smear 1999 Cholesterol Screening (Lipid Panel) 09/16/2022 Colorectal Cancer Screening: Colonoscopy 09/16/2022 HIV Screening 09/16/2022 Hepatitis C Screening 09/16/2022 Social Influencers of Health Screening 09/16/2022 Depression Screening 10/18/2024 Hypertension/CHF/CAD Annual BMP Blood Test 10/19/2024 COVID-19 Vaccine ( season) 2025 06/10/2022, 10/07/2021, 04/10/2021, Additional history exists Influenza Vaccine (#1) 2025 , 07/30/2022, 09/25/2020, Additional history exists DTaP,Tdap,and Td Vaccines (3 - Td or [...] age to complete this topic Meningococcal B Vaccine Aged Out No l onger eligible based on patient's age to complete this topic Pneumococcal Vaccine: Pediatrics (0 to 5 Years) and At-Risk Patients (6 to 49 Years) Aged Out No longer eligible based on patient's age to complete this topic RSV Immunization Patients Under 20 months Aged Out No longer eligible based on patient's age to complete this topic Varicella Vaccines Aged Out No longer eligible based on patient's age to complete this topic Insurance [place] - [place] [facility] Care Teams Sand Mill Operator Relationship Specialty Start Date End Date Physician, No Pcp PCP - General 10/19/24
--- OUTSIDE RECORDS SUMMARY | 2025-06-22 09:27 | XMS_ITS | Clinical Summary ---
Author Organization [facility] Address [address] [facility] [address] [place] [address] Phone Care Team Providers Care Undergraduate Advisor Name Role Phone Mariaa Sanchez MD Primary Care Provider [phone] Allergies Active Allergy Reactions Criticality Noted Date [...] II 01/04/2022 10/29/2022 Stress 01/04/2022 10/29/2022 Immunizations Immunization Administration Dates Next Due Influenza Split High [...] Health Maintenance Due Date Last Done Comments Hepatitis B Vaccine (1 of 3 - 19+ 3-dose series) 05/05 Pneumococcal Vaccine: Peds ( 0 to 5 Years) and At-Risk Patients (6 to 49 Years) (1 of 2 - PCV) 1997 Influenza Vaccine (#1) 2025 07/22/2015 [place] Medicaid [place] Care Teams Undergraduate Advisor Relationship Specialty Start Date End Date Mariaa Sanchez MD [address], [place] PCP - General 10/28/20
[2025-06-22 13:49] LABS: Albumin Level 4.5 g/dL (3.5-5.0); Anion Gap 12 (12-20); Blood Urea Nitrogen 13 mg/dL (9-16); Carbon Dioxide 30 mmol/L (22-29); Chloride 102 mmol/L (96-108); Estimated Glomerular Filt Rate > 60; Potassium 3.4 mmol/L (3.3-5.1); Sodium 141 mmol/L (135-145)
[2025-06-22 14:02] LABS: Protein/Creatinine Ratio, Ur 0.19 (<0.2); Total Protein Urine Random 56 mg/dL (<12)
== END 2025-06-22 08:54 | disposition home or self-care (01) ==
LOC: HO.HKASLDS 08:53
PROVIDERS: Visit Provider Internal Medicine Nephrology
DX: I10 Essential (primary) hypertension (principal); R60.9 Edema, unspecified
CPT/HCPCS: 36415; 80051; 82040; 82565; 82570; 84156; 84520

== ENCOUNTER 2025-06-28 10:28 | Outpatient (AMB) | payer BC, SELFPAY ==
--- NOTE | 2025-06-28 10:41 | HO.NEPHOV_ITS ---
Vital Signs 06/28/25 10:48 Height 5 ft 2 in Weight 210 lb 8 oz BMI 38.5 BP 142/82 H Blood Pressure Location Lt brachial Position Sitting Pulse 66 Pulse Source Pulse Oximeter Pulse Oximetry (%) 99 Oxygen Delivery Method Room Air Intake Visit Reasons: 6 mnts f/u appt Lye Machine Operator Required: No Accompanied by: Self / Same As Patient Allergies latex Allergy (Verified 06/28/25 10:48) Unknown lisinopril Allergy (Verified 06/28/25 10:48) Unknown shrimp Allergy (Verified 06/28/25 10:48) Unknown HPI Comments Details: Sid in follow-up of her hypertension. She has gained some weight and her blood pressure control has been labile. She has some symptoms suggestive of o bstructive sleep apnea. She has been having edema. She claims to be compliant with the losartan and nifedipine. She took Chlorthalidone for a brief period of time. She denies chest pain, shortness of breath, paroxysmal nocturnal dyspnea, orthopnea, urinary symptoms, visual disturbances, headache. She denies using excess nonsteroidal anti-inflammatories. She is not compliant with low-sodium diet. She is getting cortisone shots in her right knee. [facility] Medical History (Updated 06/14/25 @ 18:10 by Kenny [place] MD) Hypertension Surgical History History of carpal tunnel release History of wisdom tooth extraction H/O section History of appendectomy History of cholecystectomy Family History Mother Kidney disease Hypertension Brother Hypertension Social History Alcohol intake: never Patient Tobacco Use Status: Never used Tobacco Review of Systems Const All systems reviewed & are unremarkable except as noted in HPI and below Physical Exam Const General: comfortable and no acute distress Orientation/consciousness: patient oriented x3 HEENT Head: Yes normocephalic Mouth: Normal oral and palatal mucosa present Eyes EOM: EOMs intact bilaterally Neck Neck: Yes supple Resp Auscultation: clear to auscultation bilaterally Cardio Jugular venous distension: no JVD Rate: regular rate GI Palpation (GI): Soft to palpation Auscultation: normal bowel sounds General: Yes no CVA tenderness Back/Spine/Pelvis Back: no CVA tenderness Skin General skin exam: no rashes or lesions noted Neuro General: patient oriented x3 and moves all extremities Extrem General: Yes no pedal edema Results Reviewed Nephrology Results: Sodium, (135-145) 141 mmol/L 06/22/25 Potassium, (3.3-5.1) 3.4 mmol/L 06/22/25 Chloride, (96-108) 102 mmol/L 06/22/25 Carbon Dioxide, (22-29) 30 mmol/L H 06/22/25 BUN, (9-16) 13 mg/dL 06/22/25 Creatinine, (0.5-1.4) 0.92 mg/dL 06/22/25 Urine Creatinine 298.40 mg/dL 06/22/25 Protein/Creatinin Ratio, (<0.2) 0.19 06/22/25 Assessment & Plan Assessment & Plan (1) Hypertension: Code(s): I10 - Essential (primary) hypertension Category: Medical Qualifiers: Hypertension type: primary hypertension Qualified Code(s): I10 - Essential (primary) hypertension Plan She has had proteinuria in the past. She forgets to take medications at times. She has no edema. She is on losartan 100 mg and nifedipine 90 mg daily. I increased her Nifedipine to 120 mg daily. She likely will need a sleep study. She needs to lose weight and keep up with a low-sodium diet. She is going to follow-up with me with repeat lab work for continued care. All questions answered . Follow-up given Orders: Orders Electrolytes 6 Months I10 - Essential (primary) hypertension Calcium 6 Months I10 - Essential (primary) hypertension Creatinine 6 Months I10 - Essential (primary) hypertension Protein Creatinine Ratio, Ur 6 Months I10 - Essential (primary) hypertension Blood Urea Nitrogen 6 Months I10 - Essential (primary) hypertension Medications: Changed From nifedipine ER 90 mg PO DAILY 90 tabs 3RF To nifedipine ER 120 mg (2 x 60 mg) PO DAILY 60 tabs 6RF 30 days Coding Level of Care Code Est Pt Level 4 (27371) Diagnoses Primary hypertension I10 Hypertension type: primary hypertension
[2025-06-28 10:48] VITALS: BP 142/82; PULSE 66; O2SAT 99; BMI 38.5
== END 2025-06-28 11:17 | disposition home or self-care (01) ==
LOC: HO.HKAS 10:28
PROVIDERS: PCP Internal Medicine; Visit Provider Internal Medicine Nephrology
DX: I10 Essential (primary) hypertension (principal)
CPT/HCPCS: 99214

== ENCOUNTER 2025-09-27 10:48 | Outpatient (AMB) | payer BC, SELFPAY ==
--- NOTE | 2025-09-27 11:06 | HO.NEPHOV_ITS ---
Vital Signs 09/27/25 11:08 Height 5 ft 2 in Weight 207 lb 8 oz BMI 37.9 BP 160/110 H Blood Pressure Location Lt brachial Position Sitting Pulse 67 Pulse Source Pulse Oximeter Pulse Oximetry (%) 96 Oxygen Delivery Method Room Air Intake Visit Reasons: 3mnth NO LABS-Conf Software Educator Required: No Accompanied by: Self / Same As Patient Allergies latex Allergy (Verified 09/27/25 11:08) Unknown lisinopril Allergy (Verified 09/27/25 11:08) Unknown shrimp Allergy (Verified 09/27/25 11:08) Unknown HPI Comments Details: Zuleymaсветлана in follow-up of her hypertension. She has gained some weight and her blood pressure control has been labile. She has some symptoms suggestive of obstructive sleep apnea. She has been having edema. She claims to be compliant with the losartan and nifedipine even though she intermittently forgets it( has not taken it for last 2 days). She denies chest pain, shortness of breath, paroxysmal nocturnal dyspnea, orthopnea, ur inary symptoms, visual disturbances, headache. She denies using excess nonsteroidal anti-inflammatories. She is not compliant with low-sodium diet. She is getting cortisone shots in her right knee. She feels her edema is worse since nifedipine dose has been increased & has been started on lasix for edema. [facility] Medical History (Updated 09/27/25 @ 13:58 by Kenny [place] MD) Hypertension Surgical History History of carpal tunnel release History of wisdom tooth extraction H/O section History of appendectomy History of cholecystectomy Family History Mother Kidney disease Hypertension Brother Hypertension Social History Alcohol intake: never Patient Tobacco Use Status: Never used Tobacco Review of Systems Const All systems reviewed & are unremarkable except as noted in HPI and below Physical Exam Vital Signs: Last Vital Signs Pulse 67 09/27/25 11:08 BP 160/110 H 09/27/25 11:08 Pulse Ox 96 09/27/25 11:08 Oxygen Delivery Method Room Air 09/27/25 11:08 BMI result Body Mass Index 37.9 Const General: comfortable and no acute distress Orientation/consciousness: patient oriented x3 HEENT Head: Yes normocephalic Mouth: Normal oral and palatal mucosa present Eyes EOM: EOMs intact bilaterally Neck Neck: Yes supple Resp Auscultation: clear to auscultation bilaterally Cardio Jugular venous distension: no JVD Rate: regular rate Heart sounds: Murmur heart sound present GI Palpation (GI): Soft to palpation Auscultation: normal bowel sounds General: Yes no CVA tenderness Back/Spine/Pelvis Back: no CVA tenderness Skin General skin exam: no rashes or lesions noted Neuro General: patient oriented x3 and moves all extremities Extrem General: Yes no pedal edema Results Reviewed Nephrology Results: Sodium, (135-145) 141 mmol/L 06/22/25 Potassium, (3.3-5.1) 3.4 mmol/L 06/22/25 Chloride, (96-108) 102 mmol/L 06/22/25 Carbon Dioxide, (22-29) 30 mmol/L H 06/22/25 BUN, (9-16) 13 mg/dL 06/22/25 Creatinine, (0.5-1.4) 0.92 mg/dL 06/22/25 Urine Creatinine 298.40 mg/dL 06/22/25 Protein/Creatinin Ratio, (<0.2) 0.19 06/22/25 Assessment & Plan Assessment & Plan (1) Hypertension: Code(s): I10 - Essential (primary) hypertension Category: Medical Qualifiers: Hypertension type: primary hypertension Qualified Code(s): I10 - Essential (primary) hypertension (2) Edema: Code(s): R60.9 - Edema, unspecified Category: Medical Qualifiers: Edema type: localized Qualified Code(s): R60.0 - Localized edema Plan She has had proteinuria in the past. She forgets to take medications at times. She has been having edema and has been started on lasix. I reduced her Nifedipine to 60 mg daily and started on Spironolactone 25 mg daily. F/U labs ordered. She likely will need a sleep study. She needs to lose weight and keep up with a low-sodium diet. All questions answered . Follow-up given Orders: Orders Electrolytes 2 Weeks I10 - Essential (primary) hypertension, R60.9 - Edema, unspecified Creatinine 2 Weeks I10 - Essential (primary) hypertension, R60.9 - Edema, unspecified Blood Urea Nitrogen 2 Weeks I10 - Essential (primary) hypertension, R60.9 - Edema, unspecified Medications: New spironolactone 25 mg PO DAILY 30 tabs 4RF Coding Level of Care Code Est Pt Level 4 (91332) Diagnoses Primary hypertension I10 Hypertension type: primary hypertension Localized edema R60.0 Edema type: localized
[2025-09-27 11:08] VITALS: BP 160/110; PULSE 67; O2SAT 96; BMI 37.9
== END 2025-09-27 11:31 | disposition home or self-care (01) ==
LOC: HO.HKAS 10:48
PROVIDERS: PCP Internal Medicine; Visit Provider Internal Medicine Nephrology
DX: I10 Essential (primary) hypertension (principal); R60.0 Localized edema
CPT/HCPCS: 99214

== ENCOUNTER 2025-10-10 11:42 | Outpatient (REF) | payer BC, SELFPAY ==
--- OUTSIDE RECORDS SUMMARY | 2025-10-10 11:47 | XMS_ITS | Clinical Summary ---
Author Organization [facility] Address [address] [facility] [address] [place] [address] Phone Care Team Providers Care Chairman & Chief Executive Officer Name Role Phone Mariaa Sanchez MD Primary Care Provider [phone] Allergies Active Allergy Reactions Criticality Noted Date [...] ed emotional features 01/15/2022 10/29/2022 Binge eating disorder, unspecified 01/15/2022 10/29/2022 Carpal tunnel syndrome 01/15/202210/29 Hyperlipidemia 01/15/2022 10/29/2022 [...] Insurance [place] Care Teams Chairman & Chief Executive Officer Relationship Specialty Start Date End Date Mariaa Sanchez MD [address], [place] PCP - General 10/28/20
--- OUTSIDE RECORDS SUMMARY | 2025-10-10 11:47 | XMS_ITS | Clinical Summary ---
Author Organization [facility] Address [address] [place] [address] Phone Care Team Providers Care Automation And Control Engineer Name Role Phone Physician, No Pcp Primary Care Provider Unavaila ble Allergies Active Allergy Reactions Criticality Noted Date Comments Lisinopril Cough 10/19/2024 Medications albuterol HFA (PROAIR HFA ; PROVENTIL HFA ; VENTOLIN HFA) 90 mcg/actuation inhaler Inhale 2 puffs by mouth every 4 (four) hours if needed for wheezing. 1 each 10/19/2024 Active Surgical History Surgery Date Site/Laterality Comments APPENDECTOMY PROCEDURE: [place] APPENDECTOMY Social History Tobacco Use Types Packs/Day [...] Last Done Comments Breast Cancer Screening 1978 Colorectal Cancer Screening: Colonoscopy 1978 Hepatitis B Vaccines (1 of 3 - 19+ 3-dose series) 1997 Cervical Cancer Screening: Pap Smear 1999 Cholesterol Screening (Lipid Panel) 09/16/2022 HIV Screening 09/16/2022 Hepatitis C Screening 09/16/2022 Social Influencers of Health Screening 09/16/2022 Depression Screening 10/18/2024 Hypertension/CHF/CAD Annual BMP Blood Test 10/19/2024 COVID-19 Vaccine (2024- season) 2025 06/10/2022, 10/07/2021, 04/10/2021, Additional history exists Influenza Vaccine (#1) 2025 , 07/30/2022, 09/25/2020, Additional history exists DTaP,Tdap,and Td Vaccines (3 - Td or Tdap) 12/18/2031 12/17/2021, 05/30/2010 RSV Immunization Adult Patients (1 - 1-dose 75+ series) 2053 HIB Vaccines Aged Out No longer eligi [...] complete this topic Insurance [place] - [place] [facility] Care Teams Automation And Control Engineer Relationship Specialty Start Date End Date Physician, No Pcp PCP - General 10/19/24
[2025-10-10 15:33] LABS: Anion Gap 14 (12-20); Blood Urea Nitrogen 8 mg/dL (9-16); Carbon Dioxide 26 mmol/L (22-29); Chloride 105 mmol/L (96-108); Estimated Glomerular Filt Rate > 60; Potassium 3.3 mmol/L (3.3-5.1); Sodium 142 mmol/L (135-145)
== END 2025-10-10 11:43 | disposition home or self-care (01) ==
LOC: HO.HKASLDS 11:42
PROVIDERS: PCP Internal Medicine; Visit Provider Internal Medicine Nephrology
DX: I10 Essential (primary) hypertension (principal); R60.9 Edema, unspecified
CPT/HCPCS: 36415; 80051; 82565; 84520

== ENCOUNTER 2025-10-16 15:49 | Outpatient (AMB) | payer BC, SELFPAY ==
[2025-10-16 16:05] VITALS: BP 140/90; PULSE 70; O2SAT 97; BMI 39.3
--- NOTE | 2025-10-16 16:05 | HO.NEPHOV_ITS ---
Vital Signs 10/16/25 16:05 Height 5 ft 2 in Weight 215 lb BMI 39.3 BP 140/90 H Blood Pressure Location Lt brachial Position Sitting Pulse 70 Pulse Source Pulse Oximeter Pulse Oximetry (%) 97 Oxygen Delivery Method Room Air Intake Visit Reasons: 2wk f/u w/labs-Conf Software Installation Engineer Required: No Accompanied by: Self / Same As Patient Allergies latex Allergy (Verified 10/16/25 16:08) Unknown lisinopril Allergy (Verified 10/16/25 16:08) Unknown shrimp Allergy (Verified 10/16/25 16:08) Unknown HPI Comments Details: Sid in follow-up of her hypertension. She has gained some weight and her blood pressure control has been labile. She has some symptoms suggestive of obs tructive sleep apnea. She has been mild edema especially when she takes calcium channel troy.She claims to be compliant with the losartan and nifedipine even though she intermittently forgets it. She denies chest pain, shortness of breath, paroxysmal nocturnal dyspnea, orthopnea, ur inary symptoms, visual disturbances, headache. She denies using excess nonsteroidal anti- inflammatories. She is not compliant with low-sodium diet. [facility] Medical History (Updated 09/27/25 @ 13:58 by Kenny Moore MD) Hypertension Surgical History History of carpal tunnel release History of wisdom tooth extraction H/O section History of appendectomy History of cholecystectomy Family History Mother Kidney disease Hypertension Brother Hypertension Social History Alcohol intake: never Patient Tobacco Use Status: Never used Tobacco Review of Systems Const All systems reviewed & are unremarkable except as noted in HPI and below Physical Exam Vital Signs: Last Vital Signs Pulse 70 10/16/25 16:05 BP 170/100 H 10/16/25 16:05 Pulse Ox 97 10/16/25 16:05 Oxygen Delivery Method Room Air 10/16/25 16:05 BMI result Body Mass Index 39.3 Const General: comfortable and no acute distress Orientation/consciousness: patient oriented x3 HEENT Head: Yes normocephalic Mouth: Normal oral and palatal mucosa present Eyes EOM: EOMs intact bilaterally Neck Neck: Yes supple Resp Auscultation: clear to auscultation bilaterally Cardio Jugular venous distension: no JVD Rate: regular rate GI Palpation (GI): Soft to palpation Auscultation: normal bowel sounds General: Yes no CVA tenderness Back/Spine/Pelvis Back: no CVA tenderness Skin General skin exam: no rashes or lesions noted Neuro General: patient oriented x3 and moves all extremities Extrem General: Yes no pedal edema Results Reviewed Nephrology Results: Sodium, (135-145) 142 mmol/L 10/10/25 Potassium, (3.3-5.1) 3.3 mmol/L 10/10/25 Chloride, (96-108) 105 mmol/L 10/10/25 Carbon Dioxide, (22-29) 26 mmol/L 10/10/25 BUN, (9-16) 8 mg/dL L 10/10/25 Creatinine, (0.5-1.4) 0.91 mg/dL 10/10/25 Urine Creatinine 298.40 mg/dL 06/22/25 Protein/Creatinin Ratio, (<0.2) 0.19 06/22/25 Assessment & Plan Assessment & Plan (1) Hypertension: Code(s): I10 - Essential (primary) hypertension Category: Medical Qualifiers: Hypertension type: primary hypertension Qualified Code(s): I10 - Essential (primary) hypertension Plan She has had proteinuria in the past. She forgets to take medications at times. She has been having edema and had been started on lasix. I increased her Spironolactone to 50 mg daily. She could continue rest of her current medications. F/U labs ordered. She likely will need a sleep study. She needs to lose weight and keep up with a low-sodium diet. All questions answered . Follow-up given Orders: Orders Electrolytes Today I10 - Essential (primary) hypertension Blood Urea Nitrogen Today I10 - Essential (primary) hypertension Aldosterone Today I10 - Essential (primary) hypertension Aldost/Renin Today I10 - Essential (primary) hypertension Creatinine Today I10 - Essential (primary) hypertension Medications: Changed From spironolactone 25 mg PO DAILY 30 tabs 4RF To spironolactone 50 mg PO DAILY 30 tabs 4RF Coding Level of Care Code Est Pt Level 4 (06034) Diagnoses Primary hypertension I10 Hypertension type: primary hypertension
--- OUTSIDE RECORDS SUMMARY | 2025-10-16 18:57 | XMS_ITS | Clinical Summary ---
Author Organization [facility] Address [address] [place] [address] Phone Care Team Providers Care Primary Special Education Teacher Name Role Phone Physician, No Pcp Primary Care Provider Unavaila ble Allergies Active Allergy Reactions Criticality Noted Date Comments Lisinopril Cough 10/19/2024 Medications albuterol HFA (PROAIR HFA ; PROVENTIL HFA ; VENTOLIN HFA) 90 mcg/actuation inhaler Inhale 2 puffs by mouth every 4 (four) hours if needed for wheezing. 1 each 10/19/2024 Active Surgical History Surgery Date Site/Laterality Comments APPENDECTOMY PROCEDURE: UT APPENDECTOMY Social History Tobacco Use Types Packs/Day [...] complete this topic Insurance MEDICAID - [place] [facility] Care Teams Primary Special Education Teacher Relationship Specialty Start Date End Date Physician, No Pcp PCP - General 10/19/24
--- OUTSIDE RECORDS SUMMARY | 2025-10-16 18:57 | XMS_ITS | Clinical Summary ---
Author Organization [facility] Address [address] [facility] [address] [place] [address] Phone Care Team Providers Care Broadcast Designer Name Role Phone Mariaa Sanchez MD Primary Care Provider [phone] Allergies Active Allergy Reactions Criticality Noted Date [...] Insurance Medicaid [place] Care Teams Broadcast Designer Relationship Specialty Start Date End Date Mariaa Sanchez MD [address] [place], [place] PCP - General 10/28/20
== END 2025-10-16 16:25 | disposition home or self-care (01) ==
LOC: HO.HKAS 15:49
PROVIDERS: PCP Internal Medicine; Visit Provider Internal Medicine Nephrology
DX: I10 Essential (primary) hypertension (principal)
CPT/HCPCS: 99214